=== PATIENT | male | born 1990 | race African-American/Black ===

== ENCOUNTER 2018-07-26 12:29 | Inpatient (IN) ==
--- NOTE | 2018-07-26 13:28 | ED ---
HPI General Chief complaint: Psychiatric Symptoms Stated complaint: Psych eval / VCSO / tx [facility] Time Seen by Provider: 07/26/18 13:25 History of Present Illness HPI narrative: 28-year-old male with history of cerebral palsy, wheelchair-bound , presents under a Keller act initiated by the psychiatric nurse at [facility]. According to his paperwork the patient was attempting to overdose 2 days ago and he is actively suicidal. He was transported here from [facility] because he is felt to be outside of their scope of care because he is wheelchair-bound. The patient reports that he has been feeling suicidal for several months. He reports that 2 days ago he ingested 8 tablets of tramadol and a self-harm attempt. Denies any coingestions. Today he went to [facility] in order to talk to somebody and he was placed under Keller act. He is currently complaining of hunger. Symptoms are moderate, no obvious aggravating relieving factors. He reports that he drinks alcohol on the weekends. He denies any illicit drug use. He has no other complaints at this time. Related Data Home Medications Medication Instructions Recorded Confirmed buspirone 10 mg PO DAILY 07/26/18 07/26/18 diclofenac sodium 50 mg PO TID 07/26/18 07/26/18 gabapentin 600 mg PO TID 07/26/18 07/26/18 omeprazole 40 mg PO DAILY 07/26/18 07/26/18 sertraline 50 mg PO DAILY 07/26/18 07/26/18 Allergies Allergy/AdvReac Type Severity Reaction Status Date / Time Penicillins Allergy Unknown unknown Verified 07/26/18 12:54 Review of Systems ROS: all other systems reviewed are negative [facility] Medical History Medical History Anxiety (Acute) Depression (Acute) History of asthma (Acute) Paralysis (Acute) Surgical History Surgical History History of back surgery (Acute) Social History Social History Substance History: Active Abuse Smoking Status: Current every day smoker Tobacco Type: Cigarettes How Often Do You Have a Drink Containing Alcohol: 4 or more times a week Recent Travel in [facility] within the Last 8 Weeks: No Recent Out of Country Travel within the Last 8 Weeks: No Substance Abuse Detail Marijuana: Substance Use Status: Active Route Used Substance Abuse: Inhalation Reason for Use: Calm Down Immunization History Tetanus Immunization: Unable to Assess Exam Narrative Exam Narrative: GENERAL: Well-developed well-nourished male in no acute distress SKIN: Warm and dry. HEAD: Atraumatic. Normocephalic. EYES: Pupils equal and round. No scleral icterus. No injection or drainage. ENT: No nasal bleeding or discharge. Mucous membranes pink and moist. NECK: Trachea midline. No JVD. CARDIOVASCULAR: Regular rate and rhythm. No murmur appreciated. RESPIRATORY: No accessory muscle use. Clear to auscultation. Breath sounds equal bilaterally. GASTROINTESTINAL: Abdomen soft, non-tender, nondistended. Hepatic and splenic margins not palpable. MUSCULOSKELETAL: No obvious deformities. NEUROLOGICAL: Awake and alert. No obvious cranial nerve deficits. Motor grossly within normal limits. Normal speech. PSYCHIATRIC: Depressed mood; insight and judgment normal. Course Initial Documented Vital Signs Temperature 98.0 F 07/26/18 12:40 Pulse Rate 87 07/26/18 12:40 Respiratory Rate 18 07/26/18 12:40 Blood Pressure 127/83 07/26/18 12:40 Pulse Oximetry 99 07/26/18 12:40 Last Documented Vital Signs Temperature 98.0 F 07/26/18 12:40 Pulse Rate 87 07/26/18 12:40 Respiratory Rate 18 07/26/18 12:40 Blood Pressure 127/83 07/26/18 12:40 Pulse Oximetry 99 07/26/18 12:40 Medical Decision Making MDM Narrative Medical decision making narrative: Mental health screening discussed with the patient. Psychiatric screen ordered. Lab work is unremarkable, the patient is medically cleared for psychiatric disposition Medical Screen Exam Complete: Yes Emergency Medical Condition: Yes Differential Diagnosis Differential Diagnosis: Major depressive disorder, adjustment reaction, acute psychosis, substance induced mood disorder, depressive disorder not otherwise specified Lab Data Result diagrams: 07/26/18 12:44 07/26/18 12:44 Lab Results 07/26/18 07/26/18 07/26/18 Range/Units 12:44 12:44 12:44 WBC 4.1 (4.0-11.0) th/mm3 RBC 4.91 (4.50-5.90) mil/mm3 Hgb 15.1 (13.0-17.0) gm/dL Hct 44.9 (39.0-51.0) % MCV 91.3 (80.0-100.0) fL MCH 30.6 (27.0-34.0) pg MCHC 33.5 (32.0-36.0) % RDW 14.1 (11.6-17.2) % Plt Count 333 (150-450) th/mm3 MPV 7.1 (7.0-11.0) fL Neut % (Auto) 67.2 (16.0-70.0) % Lymph % (Auto) 25.2 (9.0-44.0) % Moffat % (Auto) 6.8 (0.0-8.0) % Eos % (Auto) 0.3 (0.0-4.0) % Baso % (Auto) 0.5 (0.0-2.0) % Neut # (Auto) 2.8 (1.8-7.7) th/mm3 Lymph # (Auto) 1.0 (1.0-4.8) th/mm3 Moffat # (Auto) 0.3 (0.0-0.9) th/mm3 Eos # (Auto) 0.0 (0.0-0.4) th/mm3 Baso # (Auto) 0.0 (0.0-0.2) th/mm3 WBC Differential . Differential Comment Auto diff final Sodium 140 (136-145) meq/L Potassium 3.6 (3.5-5.1) meq/L Chloride 106 (98-107) meq/L Carbon Dioxide 27.2 (21.0-32.0) meq/L Anion Gap 7 (5-15) meq/L BUN 16 (7-18) mg/dL Creatinine 0.78 (0.60-1.30) mg/dL Estimated GFR Greater than 89 (>89) mL/min Random Glucose 85 (74-106) mg/dL Calcium 8.9 (8.5-10.1) mg/dL Magnesium 2.2 (1.5-2.5) mg/dL Total Bilirubin 0.3 (0.2-1.0) mg/dL AST 21 (15-37) U/L ALT 21 (12-78) U/L Alkaline Phosphatase 54 (45-117) U/L Total Protein 7.7 (6.4-8.2) g/dL Albumin 4.4 (3.4-5.0) g/dL TSH 0.690 (0.358-3.740) uIU/mL Salicylates Less than 1.7 L (2.8-20.0) mg/dL Acetaminophen Less than 2.0 L (10.0-30.0) mcg/mL Serum Alcohol Less than 3 (0-5) mg/dL Discharge Plan Discharge Disposition Patient Disposition: Sign Out(ED Internal Use Only) Discharge Condition Condition: Stable Discharge Details Diagnosis: Encounter for medical clearance for patient hold Physicians Team ED Provider: Jose Correa ED Midlevel Provider: Darrell Perez Rxs /Orders / Referrals /Forms Prescriptions: No Action gabapentin 600 mg Tablet 600 mg PO TID RF: 0 omeprazole 40 mg Capsule,Delayed Release(Dr/Ec) 40 mg PO DAILY RF: 0 buspirone 10 mg Tablet 10 mg PO DAILY RF: 0 diclofenac sodium 50 mg Tablet,Delayed Release (Dr/Ec) 50 mg PO TID RF: 0 sertraline 50 mg Tablet 50 mg PO DAILY RF: 0 Status ED Status: Medically Cleared
[2018-07-26 13:57] LABS: Baso % (Auto) 0.5 % (0.0-2.0); Eos % (Auto) 0.3 % (0.0-4.0); Hematocrit 44.9 % (39.0-51.0); Hemoglobin 15.1 gm/dL (13.0-17.0); Lymph % (Auto) 25.2 % (9.0-44.0); Mean Corpuscular HGB Conc 33.5 % (32.0-36.0); Mean Corpuscular Hemoglobin 30.6 pg (27.0-34.0); Mean Corpuscular Volume 91.3 fL (80.0-100.0); Mean Platelet Volume 7.1 fL (7.0-11.0); Mono # (Auto) 0.3 th/mm3 (0.0-0.9); Mono % (Auto) 6.8 % (0.0-8.0); Neut # (Auto) 2.8 th/mm3 (1.8-7.7); Neut % (Auto) 67.2 % (16.0-70.0); Platelet Count 333 th/mm3 (150-450); Red Blood Count 4.91 mil/mm3 (4.50-5.90); Red Cell Distribution Width 14.1 % (11.6-17.2); White Blood Count 4.1 th/mm3 (4.0-11.0)
[2018-07-26 14:11] LABS: Albumin 4.4 g/dL (3.4-5.0); Anion Gap 7 meq/L (5-15); Aspartate Aminotransferase 21 U/L (15-37); Blood Urea Nitrogen 16 mg/dL (7-18); Calcium 8.9 mg/dL (8.5-10.1); Carbon Dioxide 27.2 meq/L (21.0-32.0); Chloride 106 meq/L (98-107); Glomerular Filtration Rate Greater Than 89 mL/min (>89); Glucose,Random 85 mg/dL (74-106); Magnesium 2.2 mg/dL (1.5-2.5); Potassium 3.6 meq/L (3.5-5.1); Sodium 140 meq/L (136-145)
[2018-07-26 14:20] LABS: Alanine Aminotransferase 21 U/L (12-78); Alkaline Phosphatase 54 U/L (45-117); Total Protein 7.7 g/dL (6.4-8.2)
[2018-07-26 14:52] LABS: Amphetamine Screen,Urine Neg (Neg); Barbiturate Screen,Urine Neg (Neg); Cannabinoid Screen,Urine Neg (Neg); Cocaine Screen,Urine Neg (Neg)
[2018-07-26] MEDS ORDERED: Ibuprofen 600 MG Tablet PO PRN (15:11)
[2018-07-26] MEDS ORDERED: Aluminum/Magnesium/Simethacone Susp 30 ML UDC PO PRN (15:11)
[2018-07-26 15:24] LABS: Opiate Screen,Urine Neg (Neg)
--- NOTE | 2018-07-26 17:12 | ED ---
HPI - Psych - General Time Seen by Psych Provider: 14:51 Source: patient Mode of arrival: wheelchair Limitations: physical limitation - History of Present Illness MD complaint: suicidal ideation, feels depressed Onset (ago): day(s) Duration: constant, changing over time, getting worse History of same: Yes Context: significant life stressor Associated psychiatric symptoms: depression, suicidal ideation Associated symptoms: insomnia Treatments prior to arrival: placed on mental health hold If self harm: admits thoughts of self harm, has plan, has acted on plan, intentional overdose - General Chief Complaint: Psychiatric Symptoms Stated Complaint: Psych eval / VCSO / tx [facility] [place] Time Seen by Provider: 07/26/18 13:25 - History of Present Illness HPI Narrative: This is a 28-year-old single, male who is wheelchair bound due to cerebral palsy. He presents under a psychiatric [employer] initiated Keller act after an attempted suicide by overdose approximately 2 days ago. He is not previously known to this facility. Reviewed electronic medical record, labs, discussed case with staff. Patient was evaluated in [facility]. He was found clad in [facility] lying on the stretcher. He is alert and oriented x4. His speech is clear, organized, logical, abnormal charissa and volume. He endorses suicidal ideation by "any means I can". He denies homicidal or auditory or visual hallucinations. I can elicit no delusional material. There is no indication of psychosis nor of kael. He rates his mood as sad and his affect is somewhat depressed. Additionally, he reports some frustrations and recent familial deaths. When asked how the patient was feeling today he states, "well, suicidal". He states that he believes his family took him as a joke "so I did what I did". This is a [place] male who states that he moved to [place] from [facility] [place] approximately 5-6 years ago. He is been in a wheelchair since a young age. He resides with his sister and [id number] whom he states he does get along with as a role. He denies any previous inpatient admissions to psychiatry. He reports that when he was 16 years old he threatened suicide to his aunt but this was his first actual attempt. He does admit that the overdose was in fact an attempted end his life. He states that he has a diagnosis of depression and he is currently prescribed buspirone and Zoloft. He reports external stressors of a cousin's in 2017 and another family member's in 2018. Patient receives Social Security disability. He denies owning firearms. He denies any previous history of self-harm. He states that he smokes cigarettes "some days". States that he drinks alcohol socially and endorses marijuana use occasionally. He is reporting overall feeling hopeless and helpless. He reports occasional insomnia and lack of appetite on occasion as well. (Patti Taylor) - Related Data Home Medications Medication Instructions Recorded Confirmed buspirone 10 mg PO DAILY 07/26/18 07/26/18 diclofenac sodium 50 mg PO TID 07/26/18 07/26/18 gabapentin 600 mg PO TID 07/26/18 07/26/18 omeprazole 40 mg PO DAILY 07/26/18 07/26/18 sertraline 50 mg PO DAILY 07/26/18 07/26/18 Allergies Allergy/AdvReac Type Severity Reaction Status Date / Time Penicillins Allergy Unknown unknown Verified 07/26/18 12:54 Review of Systems All other systems reviewed negative except as stated in [facility] - History History Provided By: Patient - Medical History Medical History: Medical History (Last Reviewed 07/26/18 @ 17:18 by CESAR Underwood) Anxiety Depression History of asthma Paralysis - Surgical History Surgical History: Surgical History (Last Reviewed 07/26/18 @ 17:18 by CESAR Underwood) History of back surgery - Tobacco History Tobacco Use In Past 30 Days: Yes Smoking Status: Current every day smoker Tobacco Type: Cigarettes - Alcohol History How Often Do You Have a Drink Containing Alcohol: 4 or more times a week - Substance Use History Substance History: Active Abuse - Substance Use Type Marijuana Status: Active Route Used: Inhalation Reason for Use: Calm Down - Travel History Recent Travel in the [place] Within the Last 8 Weeks: No Recent Travel Out of the Country Within the Last 8 Weeks: No - Immunization History Tetanus Immunization: Unable to Assess Psychiatric History - Psychiatric History Psychiatric Treatment History: History of Psychiatric Treatment History of Inpatient Treatment: No Firearms in Home: No - Psychiatric History Patient is prescribed medications by his primary care provider. He denies previous inpatient admissions. (Patti Taylor) Physical Exam - General Limitations: physical limitation (Cerebral palsy) General appearance: alert, in no apparent distress - Head Head exam: atraumatic, normocephalic - Neurological Exam Neurological exam: Present: alert, oriented X3 - Psychiatric Psychiatric exam: Present: depressed - Skin Skin exam: Present: warm, dry Mental Status Examination Appearance: Appropriate, Well dressed/well groomed Consciousness: Alert Orientation: x4 Motor Activity: Other (Wheelchair-bound) Speech: Unremarkable Language: Adequate Fund of Knowledge: Adequate Attention and Concentration: Adequate Memory: Unremarkable Mood: Sad Affect: Sad Thought Process & Associations: Intact Thought Content: Appropriate Hallucination Type: None Delusion Type: None Suicidal Ideation: Yes Suicidal Plan: Yes Suicidal Intention: No Homicidal Ideation: No Homicidal Plan: No Homicidal Intention: No Insight: Fair Judgment: Impulsive Initial Documented Vital Signs Temperature 98.0 F 07/26/18 12:40 Pulse Rate 87 07/26/18 12:40 Respiratory Rate 18 07/26/18 12:40 Blood Pressure 127/83 07/26/18 12:40 Pulse Oximetry 99 07/26/18 12:40 Last Documented Vital Signs Temperature 98.0 F 07/26/18 12:40 Pulse Rate 87 07/26/18 12:40 Respiratory Rate 18 07/26/18 12:40 Blood Pressure 127/83 07/26/18 12:40 Pulse Oximetry 99 07/26/18 12:40 MDM - Psych - Diagnosis (1) Major depressive disorder Code(s): F32.9 - Major depressive disorder, single episode, unspecified Status : Acute (2) Suicidal ideation Code(s): R45.851 - Suicidal ideations Status: Acute (3) Suicide attempt Code(s): T14.91XA - Suicide attempt, initial encounter Status: Acute - Differential Diagnosis Likely: suicidal ideation - Lab Data Result diagrams: 07/26/18 12:44 07/26/18 12:44 - [facility] Narrative Medical decision making narrative: Given that the patient continues to endorse suicidal ideation and has a self- reported attempt by overdose 2 days ago he meets inpatient admission criteria. Therefore, I have admitted him to a locked inpatient psychiatric unit for further evaluation and treatment as deemed necessary. Patient does have capacity to sign for his medications and therefore I have obtained consent to continue his maintenance medications as well as 50 mg of hydroxyzine by mouth every 6 hours as needed for anxiety and 50 mg of diphenhydramine by mouth at bedtime as needed for insomnia. (Patti Taylor) - Lab Data Lab Results 07/26/18 07/26/18 07/26/18 Range/Units 12:44 12:44 12:44 WBC 4.1 (4.0-11.0) th/mm3 RBC 4.91 (4.50-5.90) mil/mm3 Hgb 15.1 (13.0-17.0) gm/dL Hct 44.9 (39.0-51.0) % MCV 91.3 (80.0-100.0) fL MCH 30.6 (27.0-34.0) pg MCHC 33.5 (32.0-36.0) % RDW 14.1 (11.6-17.2) % Plt Count 333 (150-450) th/mm3 MPV 7.1 (7.0-11.0) fL Neut % (Auto) 67.2 (16.0-70.0) % Lymph % (Auto) 25.2 (9.0-44.0) % Lanier % (Auto) 6.8 (0.0-8.0) % Eos % (Auto) 0.3 (0.0-4.0) % Baso % (Auto) 0.5 (0.0-2.0) % Neut # (Auto) 2.8 (1.8-7.7) th/mm3 Lymph # (Auto) 1.0 (1.0-4.8) th/mm3 Lanier # (Auto) 0.3 (0.0-0.9) th/mm3 Eos # (Auto) 0.0 (0.0-0.4) th/mm3 Baso # (Auto) 0.0 (0.0-0.2) th/mm3 WBC Differential . Differential Comment Auto diff final Sodium 140 (136-145) meq/L Potassium 3.6 (3.5-5.1) meq/L Chloride 106 (98-107) meq/L Carbon Dioxide 27.2 (21.0-32.0) meq/L Anion Gap 7 (5-15) meq/L BUN 16 (7-18) mg/dL Creatinine 0.78 (0.60-1.30) mg/dL Estimated GFR Greater than 89 (>89) mL/min Random Glucose 85 (74-106) mg/dL Calcium 8.9 (8.5-10.1) mg/dL Magnesium 2.2 (1.5-2.5) mg/dL Total Bilirubin 0.3 (0.2-1.0) mg/dL AST 21 (15-37) U/L ALT 21 (12-78) U/L Alkaline Phosphatase 54 (45-117) U/L Total Protein 7.7 (6.4-8.2) g/dL Albumin 4.4 (3.4-5.0) g/dL TSH 0.690 (0.358-3.740) uIU/mL Salicylates Less than 1.7 L (2.8-20.0) mg/dL Urine Opiates Screen (Neg) Acetaminophen Less than 2.0 L (10.0-30.0) mcg/mL Ur Barbiturates Screen (Neg) Ur Amphetamines Screen (Neg) U Benzodiazepines Scrn (Neg) Urine Cocaine Screen (Neg) U Cannabinoids Screen (Neg) Serum Alcohol Less than 3 (0-5) mg/dL 07/26/18 Range/Units 13:45 WBC (4.0-11.0) th/mm3 RBC (4.50-5.90) mil/mm3 Hgb (13.0-17.0) gm/dL Hct (39.0-51.0) % MCV (80.0-100.0) fL MCH (27.0-34.0) pg MCHC (32.0-36.0) % RDW (11.6-17.2) % Plt Count (150-450) th/mm3 MPV (7.0-11.0) fL Neut % (Auto) (16.0-70.0) % Lymph % (Auto) (9.0-44.0) % Lanier % (Auto) (0.0-8.0) % Eos % (Auto) (0.0-4.0) % Baso % (Auto) (0.0-2.0) % Neut # (Auto) (1.8-7.7) th/mm3 Lymph # (Auto) (1.0-4.8) th/mm3 Lanier # (Auto) (0.0-0.9) th/mm3 Eos # (Auto) (0.0-0.4) th/mm3 Baso # (Auto) (0.0-0.2) th/mm3 WBC Differential Differential Comment Sodium (136-145) meq/L Potassium (3.5-5.1) meq/L Chloride (98-107) meq/L Carbon Dioxide (21.0-32.0) meq/L Anion Gap (5-15) meq/L BUN (7-18) mg/dL Creatinine (0.60-1.30) mg/dL Estimated GFR (>89) mL/min Random Glucose (74-106) mg/dL Calcium (8.5-10.1) mg/dL Magnesium (1.5-2.5) mg/dL Total Bilirubin (0.2-1.0) mg/dL AST (15-37) U/L ALT (12-78) U/L Alkaline Phosphatase (45-117) U/L Total Protein (6.4-8.2) g/dL Albumin (3.4-5.0) g/dL TSH (0.358-3.740) uIU/mL Salicylates (2.8-20.0) mg/dL Urine Opiates Screen Neg (Neg) Acetaminophen (10.0-30.0) mcg/mL Ur Barbiturates Screen Neg (Neg) Ur Amphetamines Screen Neg (Neg) U Benzodiazepines Scrn Neg (Neg) Urine Cocaine Screen Neg (Neg) U Cannabinoids Screen Neg (Neg) Serum Alcohol (0-5) mg/dL
[2018-07-27] MEDS ORDERED: Acetaminophen 325 MG Tablet PO ONE (06:15)
[2018-07-27] MEDS ORDERED: Sertraline 50 MG Tablet PO SCH (09:00)
[2018-07-27] MEDS: Gabapentin 300 MG Capsule PO SCH ×3 (09:31→17:47)
[2018-07-27 10:33] LABS: Anion Gap 8 meq/L (5-15); Blood Urea Nitrogen 14 mg/dL (7-18); Calcium 9.2 mg/dL (8.5-10.1); Carbon Dioxide 30.4 meq/L (21.0-32.0); Chloride 103 meq/L (98-107); Glomerular Filtration Rate Greater Than 89 mL/min (>89); Glucose,Random 83 mg/dL (74-106); Potassium 3.8 meq/L (3.5-5.1); Sodium 141 meq/L (136-145)
[2018-07-27 10:34] LABS: Cholesterol 157 mg/dL (120-200); Triglycerides 83 mg/dL (42-150)
[2018-07-27 10:36] LABS: Chol/HDL Ratio 2.53 Ratio; LDL Cholesterol,Calculated 78 mg/dL (0-99)
--- NOTE | 2018-07-27 12:47 | P.HPPSY ---
Provisional Diagnosis Admission Date: July 26, 2018 15:10 Corbin I.: Major depressive disorder recurrent moderate Generalized anxiety disorder Corbin III.: Cerebral palsy Competence Certification of Person's Competence To Provide Express and Informed Consent I have personally examined Venkata Saini, a person being served at [facility] on, July 27, 2018 1234. Express and informed consent means consent voluntarily given in writing, by a competent person, after sufficient explanation and disclosure of the subject matter involved to enable the person to make a knowing and willful decision without any element of force, fraud, deceit, duress, or other form of constraint or coercion. This person is 18 years of age or older, is not now known to be incompetent to consent to treatment with a guardian advocate, and does not have a health care surrogate or proxy currently making medical treatment decisions. I have found this person to be one of the following: [xxx] Competent to provide express and informed consent, as defined above, for voluntary admission to this facility and is competent to provide express and informed consent for treatment. He/she has the consistent capacity to make well reasoned, willful, and knowing decisions concerning his or her medical or mental health treatment. The person fully and consistently understands the purpose of the admission for examination/placement and is fully capable of personally exercising all rights assured under [place] Incompetent to provide express and informed consent to voluntary admission, and this is incompetent to provide express and informed consent to treatment. The person must be transferred to involuntary status and a petition for a guardian advocate filed with the Circuit Court. [] Refusing to provide express and informed consent to voluntary admission but is competent to provide express and informed consent for treatment. The person must be discharged or transferred to involuntary status. Form shall be completed within 24 hours of a person's arrival at the receiving facility and filed in the clinical record of each person: 1. Admitted on a voluntary basis 2. Permitted to provide express and informed consent to his/her own treatment 3. Allowed to transfer from involuntary to voluntary status 4. Prior to permitting a person to consent to his or her own treatment after having been previously found incompetent to consent to treatment. History of Present Illness Capacity: Has capacity Chief Complaint: Suicidal ideations and behaviors History of Present Illness: The patient is a 28-year-old male with a history of cerebral palsy who presented to the emergency department under a Keller act order initiated by a psychiatric nurse at [facility]. The patient reportedly had admitted to a suicide attempt by overdose 2 days prior to admission. He had admitted to suicidal ideations for several months and taken an overdose of 8 tramadol tablets, but then told his family and agreed to seek help through [facility]. The patient reports recent and chronic stressors from grief and loss starting with his mother when he was 7 years old followed by multiple family members and close friends to include a close cousin in 2017 and a close friend just recently. Patient reports that the last time he was happy was before his mother's at the age of 7. He reports trying to be happy throughout his life, "I try to laugh and joke with my family" but he indicates that the recurrent losses continue to bring him down. Patient also expressed stress from being financially limited, "I would like to help my family more but I do not get enough money and I cannot work." As for depression, patient endorses recurrent episodes of depression with symptoms of restless sleep, decreased interest, increased feelings of guilt and helplessness, decreased energy, decreased concentration, decreased appetite, and thoughts that he would be better off . The patient also described interpersonal sensitivity while depressed characterized as "I feel like people are taking advantage of me." Patient also reports decreased frustration tolerance and difficulty controlling his temper. Patient reports that his family has been supportive and he lives for the opportunity to be around his sister brother and nephews and nieces. As for anxiety, the patient reports chronic excessive worries that are worse when "things are going good". He reports an irritable mood and intermittent muscle tension. He reports chronic problems falling asleep due to racing worries. As for psychosis, he denies any complete auditory hallucinations or visual hallucinations and he denies paranoid delusions but he does endorse negative self commentary that can be strong when feeling depressed and interpersonal anxiety and sensitivity. Past psychiatric history: Past Diagnoses: Patient reports being diagnosed with depression and anxiety by psychiatrist in 2017 Hospitalizations: None prior Suicidal behavior: Patient reports preparing for suicides a total of 3 times but this was his first actual attempt. He denies any history of interpersonal violence. Past psychotropic medication trials: Patient reports that his primary care doctor has been prescribing him Zoloft 50 mg a day and buspirone 10 mg a day for anxiety and depression but he quit because he felt like it was sedating. Outpatient MH treatment: Patient sought treatment in 2017 and had 3 visits with a psychiatrist but was ambivalent about starting medication so the treatment was discontinued. Patient eventually decided "I could not do it on my own and I need help with the depression." He sought psychiatric treatment through his primary care provider provided the BuSpar and Zoloft. Substance Use Treatment: None Abuse/assault history: Denies Family psychiatric history: Denies Psychosocial history: Patient was born and raised in [facility]. His mother when he was 7 years old. He eventually moved down to [place] at the age of 13 and graduated high school. No college. He currently lives with his sister and [id number]. He is on disability and receives Social Security income. He denies any history of arrests or legal stressors. Substance Use history: Tobacco use: He denies regular use but does admit to smoking when feeling depressed but has not used for over 2 weeks. Alcohol use: He denies a history of regular use. He does admit to drinking 2-4 times per week with friends, "I cannot afford to buy alcohol for myself." Cannabis use: He reports occasional use and again is reliant on others providing for him Stimulant use: Denies Opiate use: Denies Prescription drug abuse: Denies - Inpatient Certification I certify that the inpatient services were ordered in accordance with Medicare regulations governing the order. This includes certification that hospital inpatient services are reasonable and necessary and in the case of services not specified as inpatient-only under 42 CFR 419.22(n), that they are appropriately provided as inpatient services in accordance to with the 2-midnight benchmark under 43 CFR 412.3(e) I certify that inpatient psychiatric hospital services are medically necessary. Evaluation and treatment and/or diagnostic testing are expected to improve the patient's condition. The patient needs on a daily basis, active treatment furnished directly by or requiring the supervision of inpatient psychiatric facility personnel. Estimated Total Length of Stay (Days): 5 Plans for Post Hospital Care: Home Review of Systems Musculoskeletal: Reports abnormal walking (Uses wheelchair), Reports limited joint movement, Reports stiffness Psychiatric: Reports abnormal sleep pattern, Reports anxiety, Reports depression , Reports difficulty concentrating, Reports hopelessness, Reports irritability, Reports lack of enjoyment, Denies seeing things others do not see, Denies sensing things others do not sense, Denies thoughts of hurting/killing others, Denies thoughts of hurting/killing yourself (None currently but he has had thoughts intermittently while depressed) PMF - History History Provided By: Patient - Medical History Medical History: Medical History (Last Reviewed 07/26/18 @ 17:18 by CESAR Underwood) Anxiety Depression History of asthma Paralysis - Surgical History Surgical History: Surgical History (Last Reviewed 07/26/18 @ 17:18 by CESAR Underwood) History of back surgery - Tobacco History Second Hand Smoke Exposure: Yes Tobacco Use In Past 30 Days: Yes Smoking Status: Current some day smoker Tobacco Type: Cigarettes - Alcohol History How Often Do You Have a Drink Containing Alcohol: 2 to 3 times a week - Substance Use History Substance History: Active Abuse - Substance Use Type Marijuana Status: Active Route Used: Inhalation Reason for Use: Calm Down, Get High Comment: PT reports preferring marijuana to psychotropic medications - Travel History Recent Travel in the [place] Within the Last 8 Weeks: No Recent Travel Out of the Country Within the Last 8 Weeks: No - Immunization History Tetanus Immunization: Unable to Assess Medications and Allergies Active Medications: Active Medications Al Hydrox/Mg Hydrox/Simethicone (Mag-Al Plus Susp Liq) 30 ml PO Q6H PRN PRN Reason: DYSPEPSIA Al Hydroxide/Mg Hydroxide (Milk Of Magnesia Liq) 30 ml PO Q12H PRN PRN Reason: Mild Constipation Buspirone HCl (Buspar) 10 mg PO DAILY [facility] Last Admin: 07/27/18 09:17 Dose: 10 mg Diclofenac Sodium (Voltaren Dr) 50 mg PO TID [facility] Last Admin: 07/27/18 12:22 Dose: 50 mg Diphenhydramine HCl (Benadryl) 50 mg PO HS PRN PRN Reason: INSOMNIA Last Admin: 07/26/18 22:16 Dose: 50 mg Gabapentin (Neurontin) 600 mg PO TID [facility] Last Admin: 07/27/18 12:21 Dose: 600 mg Hydroxyzine HCl (Atarax) 50 mg PO Q6H PRN PRN Reason: ANXIETY Last Admin: 07/26/18 18:38 Dose: 50 mg Pantoprazole Sodium (Protonix) 40 mg PO DAILY [facility] Last Admin: 07/27/18 09:32 Dose: 40 mg Sertraline HCl (Zoloft) 50 mg PO DAILY [facility] Last Admin: 07/27/18 09:17 Dose: 50 mg Allergies Allergy/AdvReac Type Severity Reaction Status Date / Time Penicillins Allergy Unknown unknown Verified 07/26/18 12:54 Home Medications Medication Instructions Recorded Confirmed Type buspirone 10 mg PO DAILY 07/26/18 07/26/18 History diclofenac sodium 50 mg PO TID 07/26/18 07/26/18 History gabapentin 600 mg PO TID 07/26/18 07/26/18 History omeprazole 40 mg PO DAILY 07/26/18 07/26/18 History sertraline 50 mg PO DAILY 07/26/18 07/26/18 History Results - Labs CBC & Chem 7: 07/26/18 12:44 07/27/18 09:32 Labs: Laboratory Results - last 24 hr 07/26/18 07/26/18 07/26/18 12:44 12:44 12:44 WBC 4.1 RBC 4.91 Hgb 15.1 Hct 44.9 MCV 91.3 MCH 30.6 MCHC 33.5 RDW 14.1 Plt Count 333 MPV 7.1 Neut % (Auto) 67.2 Lymph % (Auto) 25.2 Woods % (Auto) 6.8 Eos % (Auto) 0.3 Baso % (Auto) 0.5 Neut # (Auto) 2.8 Lymph # (Auto) 1.0 Woods # (Auto) 0.3 Eos # (Auto) 0.0 Baso # (Auto) 0.0 WBC Differential . Differential Comment Auto diff final Sodium 140 Potassium 3.6 Chloride 106 Carbon Dioxide 27.2 Anion Gap 7 BUN 16 Creatinine 0.78 Estimated GFR Greater than 89 Random Glucose 85 Calcium 8.9 Magnesium 2.2 Total Bilirubin 0.3 AST 21 ALT 21 Alkaline Phosphatase 54 Total Protein 7.7 Albumin 4.4 Triglycerides Cholesterol LDL Cholesterol, Calc HDL Cholesterol Cholesterol/HDL Ratio TSH 0.690 Salicylates Less than 1.7 L Urine Opiates Screen Acetaminophen Less than 2.0 L Ur Barbiturates Screen Ur Amphetamines Screen U Benzodiazepines Scrn Urine Cocaine Screen U Cannabinoids Screen Serum Alcohol Less than 3 07/26/18 07/27/18 13:45 09:32 WBC RBC Hgb Hct MCV MCH MCHC RDW Plt Count MPV Neut % (Auto) Lymph % (Auto) Woods % (Auto) Eos % (Auto) Baso % (Auto) Neut # (Auto) Lymph # (Auto) Woods # (Auto) Eos # (Auto) Baso # (Auto) WBC Differential Differential Comment Sodium 141 Potassium 3.8 Chloride 103 Carbon Dioxide 30.4 Anion Gap 8 BUN 14 Creatinine 1.04 Estimated GFR Greater than 89 Random Glucose 83 Calcium 9.2 Magnesium Total Bilirubin AST ALT Alkaline Phosphatase Total Protein Albumin Triglycerides 83 Cholesterol 157 LDL Cholesterol, Calc 78 HDL Cholesterol 62.0 H Cholesterol/HDL Ratio 2.53 TSH Salicylates Urine Opiates Screen Neg Acetaminophen Ur Barbiturates Screen Neg Ur Amphetamines Screen Neg U Benzodiazepines Scrn Neg Urine Cocaine Screen Neg U Cannabinoids Screen Neg Serum Alcohol Exam Vital signs: Vital Signs 07/26/18 12:40 07/26/18 17:27 07/27/18 05:54 Temperature 98.0 F 97.5 F L 98.6 F Pulse Rate 87 78 70 Respiratory Rate 18 16 18 Blood Pressure 127/83 118/60 102/49 L Pulse Oximetry 99 98 Intake & Output 07/26/18 07/27/18 07/27/18 18:59 06:59 18:59 Intake Total 360 / 360 Balance 360 / 360 Weight 54.5 kg Intake: Oral 360 / 360 Other: Weight On Admission 54.5 kg Mental Status Examination Appearance: Appropriate Consciousness: Alert Orientation: x4 Motor Activity: Other (Wheelchair-bound) Speech: Unremarkable Language: Adequate Fund of Knowledge: Adequate Attention and Concentration: Adequate Memory: Unremarkable Mood: Sad, Anxious Affect: Sad Thought Process & Associations: Intact Thought Content: Appropriate Hallucination Type: None Delusion Type: None Suicidal Ideation: No Suicidal Plan: No Suicidal Intention: No Homicidal Ideation: No Homicidal Plan: No Homicidal Intention: No Insight: Fair Judgment: Impulsive Assessment and Plan - Assessment (1) Major depressive disorder, recurrent, moderate Code(s): F33.1 - Major depressive disorder, recurrent, moderate Status: Acute (2) Generalized anxiety disorder Code(s): F41.1 - Generalized anxiety disorder Status: Acute - Plan Plan: 1. Continue with admission to inpatient psychiatry at [facility]; convert to voluntary/competent legal status. 2. Routine unit precautions. 3. Comfort medications ordered for as needed treatment of constipation, heartburn, diarrhea, and mild pain. 4. Hydroxyzine 50mg po q6H prn anxiety/insomnia. 5. Recommend an increase to his Zoloft treatment due to sedation from the 50 mg but otherwise well tolerated; start tomorrow morning at Zoloft 100 mg once a day for treatment of depression and anxiety. 6. Continue buspirone but increase to 10 mg 3 times a day for treatment of anxiety and depression. 7. Continue gabapentin as ordered. 8. Patient will participate in the unit programming to include group therapies , milieu therapy and recreational therapies. 9. Discharge planning: The patient will need referrals for psychiatric care as well as counseling. The patient is motivated to attend support group here at [facility] and will be provided information at discharge. The patient is expected to return home to his sister and [id number]. Estimated LOS: 3-5 days Justification for Continued Inpatient Stay: Patient is a 28-year-old male with a history of chronic and recurrent depressive episodes as well as chronic anxiety seem to have begun with the tragic loss of his mother at the age of 7. The patient has recently had an exacerbation of his depression in relation to grief and loss. He admits to recurrent thoughts of suicide to include preparation and plans and this past week he actually follow through with an overdose of his pain medication. The patient remains depressed hopeless and helpless. He is expressing sincere motivation to get help and to live for his family and a chance to be happy again and he is willing to cooperate with medication changes and referrals for outpatient care therefore he will be allowed to sign in voluntarily with the plan to make changes to his medications ensure there tolerability and continued improvement in mood and then discharge early next week.
[2018-07-27 17:18] LABS: Hemoglobin A1c 5.4 % (4.3-6.0)
[2018-07-28] MEDS: Gabapentin 300 MG Capsule PO SCH ×3 (09:28→18:14)
[2018-07-28] MEDS: Sertraline 50 MG Tablet PO SCH (09:28)
--- NOTE | 2018-07-28 12:52 | P.PNPSY ---
Subjective Chief Complaint: Suicidal ideations and behaviors Remarks: Patient was seen and case discussed with nursing. Patient describes his mood today "little bit better, depressed." Is blunted and minimally interactive during the interview. Seclusive to her room. At this time, he denies suicidal or homicidal ideation intent or plan. Review of Systems All other systems reviewed negative except as stated in HPI Mental Status Examination Appearance: Appropriate Consciousness: Alert Orientation: x4 Motor Activity: Other (Wheelchair-bound) Speech: Unremarkable Language: Adequate Fund of Knowledge: Adequate Attention and Concentration: Adequate Memory: Unremarkable Mood: Sad, Anxious Affect: Sad Thought Process & Associations: Intact Thought Content: Appropriate Hallucination Type: None Delusion Type: None Suicidal Ideation: No Suicidal Plan: No Suicidal Intention: No Homicidal Ideation: No Homicidal Plan: No Homicidal Intention: No Insight: Fair Judgment: Impulsive Assessment and Plan - Assessment (1) Major depressive disorder, recurrent, moderate Code(s): F33.1 - Major depressive disorder, recurrent, moderate Status: Acute (2) Generalized anxiety disorder Code(s): F41.1 - Generalized anxiety disorder Status: Acute - Plan Plan: Continue current treatment plan Justification for Continued Inpatient Stay: Patient would decompensate in a less restrictive setting
[2018-07-29] MEDS: Gabapentin 300 MG Capsule PO SCH ×3 (08:38→17:49)
[2018-07-29] MEDS: Sertraline 50 MG Tablet PO SCH (08:39)
--- NOTE | 2018-07-29 16:00 | P.PNPSY ---
Subjective Chief Complaint: Suicidal ideations and behaviors Remarks: Reviewed electronic medical record and discussed with nursing staff. Rounded with HIRAM Martinez. Patient is in bed napping. Nursing reports that patient has been participating in activities and active on the unit. He told the nursing staff that he is starting to feel better. Appetite is good and sleeping well. Denies SI/HI. Review of Systems All other systems reviewed negative except as stated in HPI Mental Status Examination Appearance: Appropriate Consciousness: Alert Orientation: x4 Motor Activity: Other (Wheelchair-bound) Speech: Unremarkable Language: Adequate Fund of Knowledge: Adequate Attention and Concentration: Adequate Memory: Unremarkable Mood: Sad, Anxious Affect: Sad Thought Process & Associations: Intact Thought Content: Appropriate Hallucination Type: None Delusion Type: None Suicidal Ideation: No Suicidal Plan: No Suicidal Intention: No Homicidal Ideation: No Homicidal Plan: No Homicidal Intention: No Insight: Fair Judgment: Impulsive Assessment and Plan - Assessment (1) Generalized anxiety disorder Code(s): F41.1 - Generalized anxiety disorder Status: Acute (2) Major depressive disorder, recurrent, moderate Code(s): F33.1 - Major depressive disorder, recurrent, moderate Status: Acute - Plan Plan: Continue current treatment plan Justification for Continued Inpatient Stay: Moving patient to a less restrictive environment may result in his decompensation.
[2018-07-30] MEDS: Gabapentin 300 MG Capsule PO SCH ×3 (08:56→18:08)
[2018-07-30] MEDS: Sertraline 50 MG Tablet PO SCH (08:58)
--- NOTE | 2018-07-30 12:19 | P.PNPSY ---
Subjective Chief Complaint: Suicidal ideations and behaviors Remarks: Patient seen for follow-up, chart reviewed, patient discussed with nursing staff ; we reviewed the patient's mood, thoughts, and behaviors from overnight and this morning. Nursing reports the patient has remained calm and cooperative with care but is mostly seclusive to his room. He has attended groups with encouragement. He is taking his medications and has not complained of any physical discomfort. He has not voiced any homicidal or suicidal ideations. Patient was seen at bedside finishing his lunch. He reports that "my depression is still there but it is better." The patient denies significant improvement with his anxiety and he expressed concern with potential discharge, "I am afraid to go home yet because of the way I feel I I might hurt myself or my family and I do not want to do that." Patient expressed motivation to continue going to psychotherapy groups and would like to be referred for intensive outpatient therapy and anger management if available. The patient agrees to contract for safety and that he will notify nursing or hospital staff if suicidal ideations return or he feels he is about to lose control his behavior. Mental Status Examination Appearance: Appropriate Consciousness: Alert Orientation: x4 Motor Activity: Other (Wheelchair-bound) Speech: Unremarkable Language: Adequate Fund of Knowledge: Adequate Attention and Concentration: Adequate Memory: Unremarkable Mood: Sad, Anxious Affect: Sad, Other (Constricted) Thought Process & Associations: Intact Thought Content: Appropriate Hallucination Type: None Delusion Type: None Suicidal Ideation: No Suicidal Plan: No Suicidal Intention: No Homicidal Ideation: No Homicidal Plan: No Homicidal Intention: No Insight: Fair Judgment: Impulsive Assessment and Plan - Assessment (1) Major depressive disorder, recurrent, moderate Code(s): F33.1 - Major depressive disorder, recurrent, moderate Status: Acute (2) Generalized anxiety disorder Code(s): F41.1 - Generalized anxiety disorder Status: Acute - Plan Plan: Initial assessment and plan: Patient is a 28-year-old male with a history of chronic and recurrent depressive episodes as well as chronic anxiety seem to have begun with the tragic loss of his mother at the age of 7. The patient has recently had an exacerbation of his depression in relation to grief and loss. He admits to recurrent thoughts of suicide to include preparation and plans and this past week he actually follow through with an overdose of his pain medication. The patient remains depressed hopeless and helpless. He is expressing sincere motivation to get help and to live for his family and a chance to be happy again and he is willing to cooperate with medication changes and referrals for outpatient care therefore he will be allowed to sign in voluntarily with the plan to make changes to his medications ensure there tolerability and continued improvement in mood and then discharge early next week. 1. Continue with admission to inpatient psychiatry at [facility]; convert to voluntary/competent legal status. 2. Routine unit precautions. 3. Comfort medications ordered for as needed treatment of constipation, heartburn, diarrhea, and mild pain. 4. Hydroxyzine 50mg po q6H prn anxiety/insomnia. 5. Recommend an increase to his Zoloft treatment due to sedation from the 50 mg but otherwise well tolerated; start tomorrow morning at Zoloft 100 mg once a day for treatment of depression and anxiety. 6. Continue buspirone but increase to 10 mg 3 times a day for treatment of anxiety and depression. 7. Continue gabapentin as ordered. 8. Patient will participate in the unit programming to include group therapies , milieu therapy and recreational therapies. 9. Discharge planning: The patient will need referrals for psychiatric care as well as counseling. The patient is motivated to attend support group here at [place] and will be provided information at discharge. The patient is expected to return home to his sister and [id number]. Estimated LOS: 3-5 days 07/30/2018: Fair response to treatment; the patient is reporting improved mood and sleeping well through the night and tolerating medications. He continues to express concern for his emotional sensitivity and ability to control self- harm behaviors and therefore will require continued inpatient stabilization. Continue inpatient psychiatric treatment and observation; medications unchanged. Continue involvement in the inpatient programming to include support groups and recreational therapy. Discharge planning: The patient will need referrals for psychiatric care as well as counseling. The patient is motivated to attend support group here at [place] and will be provided information at discharge. The patient is expected to return home to his sister and [id number]. Anticipate discharge by Monday. Justification for Continued Inpatient Stay: Patient remains an elevated risk for self-harm or harm to others and will require further inpatient stabilization and preparation of a safe discharge plan. Moving patient to a less restrictive environment at this time may result in decompensation.
[2018-07-31] MEDS: Sertraline 50 MG Tablet PO SCH (08:25)
[2018-07-31] MEDS: Gabapentin 300 MG Capsule PO SCH ×3 (08:25→17:11)
--- NOTE | 2018-07-31 12:05 | P.PNPSY ---
Subjective Chief Complaint: Suicidal ideations and behaviors Remarks: Patient seen for follow-up, chart reviewed, patient discussed with nursing staff ; we reviewed the patient's mood, thoughts, and behaviors from overnight and this morning. Nurse reports that patient admitted to passive suicidal thoughts on evening shift but this morning his affect has appeared brighter and he has been going to all of the groups. The patient was seen during fresh air break and he continues to report overall improvement on his mood but anxiety remains high. The patient expressed understanding that he be discharged this week and he indicates that he is trying to get the most out of his group therapies today. Patient is able to contract for safety and feels confident that he will be ready for discharge tomorrow. Mental Status Examination Appearance: Appropriate Consciousness: Alert Orientation: x4 Motor Activity: Other (Wheelchair-bound) Speech: Unremarkable Language: Adequate Fund of Knowledge: Adequate Attention and Concentration: Adequate Memory: Unremarkable Mood: Sad, Anxious Affect: Sad, Other (Constricted) Thought Process & Associations: Intact Thought Content: Appropriate Hallucination Type: None Delusion Type: None Suicidal Ideation: No Suicidal Plan: No Suicidal Intention: No Homicidal Ideation: No Homicidal Plan: No Homicidal Intention: No Insight: Fair Judgment: Impulsive Assessment and Plan - Assessment (1) Major depressive disorder, recurrent, moderate Code(s): F33.1 - Major depressive disorder, recurrent, moderate Status: Acute (2) Generalized anxiety disorder Code(s): F41.1 - Generalized anxiety disorder Status: Acute - Plan Plan: Initial assessment and plan: Patient is a 28-year-old male with a history of chronic and recurrent depressive episodes as well as chronic anxiety seem to have begun with the tragic loss of his mother at the age of 7. The patient has recently had an exacerbation of his depression in relation to grief and loss. He admits to recurrent thoughts of suicide to include preparation and plans and this past week he actually follow through with an overdose of his pain medication. The patient remains depressed hopeless and helpless. He is expressing sincere motivation to get help and to live for his family and a chance to be happy again and he is willing to cooperate with medication changes and referrals for outpatient care therefore he will be allowed to sign in voluntarily with the plan to make changes to his medications ensure there tolerability and continued improvement in mood and then discharge early next week. 1. Continue with admission to inpatient psychiatry at [facility]; convert to voluntary/competent legal status. 2. Routine unit precautions. 3. Comfort medications ordered for as needed treatment of constipation, heartburn, diarrhea, and mild pain. 4. Hydroxyzine 50mg po q6H prn anxiety/insomnia. 5. Recommend an increase to his Zoloft treatment due to sedation from the 50 mg but otherwise well tolerated; start tomorrow morning at Zoloft 100 mg once a day for treatment of depression and anxiety. 6. Continue buspirone but increase to 10 mg 3 times a day for treatment of anxiety and depression. 7. Continue gabapentin as ordered. 8. Patient will participate in the unit programming to include group therapies , milieu therapy and recreational therapies. 9. Discharge planning: The patient will need referrals for psychiatric care as well as counseling. The patient is motivated to attend support group here at [place] and will be provided information at discharge. The patient is expected to return home to his sister and [id number]. Estimated LOS: 3-5 days 07/30/2018: Fair response to treatment; the patient is reporting improved mood and sleeping well through the night and tolerating medications. He continues to express concern for his emotional sensitivity and ability to control self- harm behaviors and therefore will require continued inpatient stabilization. Continue inpatient psychiatric treatment and observation; medications unchanged. Continue involvement in the inpatient programming to include support groups and recreational therapy. Discharge planning: The patient will need referrals for psychiatric care as well as counseling. The patient is motivated to attend support group here at [place] and will be provided information at discharge. The patient is expected to return home to his sister and [id number]. Anticipate discharge by Monday. 07/31/2018: Fair response to treatment; the patient's depression is slowly lifting and his anxiety seems better today as he is attending more of the groups that he had previously. He is tolerating the medications and expressed good understanding of safety planning and discharge planning. Continue inpatient psychiatric treatment and observation; medications unchanged as it will take more time to reach therapeutic effect from the Zoloft. Discharge planning: The patient will need referrals for psychiatric care as well as counseling. The patient is motivated to attend support group here at [place] and will be provided information at discharge. The patient is expected to return home to his sister and [id number]. Anticipate discharge by Monday. Justification for Continued Inpatient Stay: Patient remains an elevated risk for self-harm and will require further inpatient stabilization and preparation of a safe discharge plan. Moving patient to a less restrictive environment at this time may result in decompensation.
--- NOTE | 2018-07-31 15:58 | P.TTN ---
- Patient Problems Problems: 1. Discharge planning 2. Medication compliance 3. Knowledge deficit 4. Lack of coping skills - Progress Toward Goals Provider Present: Other Provider Input: 07/31/2018; per Dr. Llanos, patient continues to express being depressed with random SI. Nurse(s) Present: RN Nurse Input: 07/31/2018; patient is eating meals and taking medication, continues to express feeling sad and depressed Psychiatric Counselors Present: Sonia Pinon [facility] Psychiatric Therapist Input: 07/31/2018; counselor will contact patient family to discuss dc planning, link patient with an outpatient provider Group Spec/RT/OT/[facility] Present: Javier Atkinson, OT Group Spec/RT/OT/[facility] Input: 07/31/2018 patient is participating with activities and groups - Documentation Teaching Recipient: Patient
[2018-08-01] MEDS: Sertraline 50 MG Tablet PO SCH (08:19)
[2018-08-01] MEDS: Gabapentin 300 MG Capsule PO SCH ×3 (08:19→17:55)
--- NOTE | 2018-08-01 17:09 | P.PNPSY ---
Subjective Chief Complaint: Suicidal ideations and behaviors Remarks: Patient seen for follow-up, chart reviewed, patient discussed with nursing staff ; we reviewed the patient's mood, thoughts, and behaviors from overnight and this morning. Nurse reports the patient continues to have restless sleep and only got about 6 hours of rest last night. The patient was seen participating in group therapy throughout the day. We discussed plans for discharge and he expressed concern because of a recurrence of passive suicidal thoughts today that seem to be triggered by discussions of grief during his support group. He complained of acute sadness while processing the loss of his parents. The patient reports that overall the inpatient programming has been very helpful and he feels another day would ensure that he will be able to return home without a recurrence of his suicidality. Mental Status Examination Appearance: Appropriate Consciousness: Alert Orientation: x4 Motor Activity: Other (Wheelchair-bound) Speech: Unremarkable Language: Adequate Fund of Knowledge: Adequate Attention and Concentration: Adequate Memory: Unremarkable Mood: Sad, Anxious Affect: Sad, Other (Constricted) Thought Process & Associations: Intact Thought Content: Appropriate Hallucination Type: None Delusion Type: None Suicidal Ideation: Yes (He reports brief thoughts that he would rather be so he could join his parents but these thoughts did not include intent or plan) Suicidal Plan: No Suicidal Intention: No Homicidal Ideation: No Homicidal Plan: No Homicidal Intention: No Insight: Fair Judgment: Impulsive Assessment and Plan - Assessment (1) Major depressive disorder, recurrent, moderate Code(s): F33.1 - Major depressive disorder, recurrent, moderate Status: Acute (2) Generalized anxiety disorder Code(s): F41.1 - Generalized anxiety disorder Status: Acute - Plan Plan: Initial assessment and plan: Patient is a 28-year-old male with a history of chronic and recurrent depressive episodes as well as chronic anxiety seem to have begun with the tragic loss of his mother at the age of 7. The patient has recently had an exacerbation of his depression in relation to grief and loss. He admits to recurrent thoughts of suicide to include preparation and plans and this past week he actually follow through with an overdose of his pain medication. The patient remains depressed hopeless and helpless. He is expressing sincere motivation to get help and to live for his family and a chance to be happy again and he is willing to cooperate with medication changes and referrals for outpatient care therefore he will be allowed to sign in voluntarily with the plan to make changes to his medications ensure there tolerability and continued improvement in mood and then discharge early next week. 1. Continue with admission to inpatient psychiatry at [facility]; convert to voluntary/competent legal status. 2. Routine unit precautions. 3. Comfort medications ordered for as needed treatment of constipation, heartburn, diarrhea, and mild pain. 4. Hydroxyzine 50mg po q6H prn anxiety/insomnia. 5. Recommend an increase to his Zoloft treatment due to sedation from the 50 mg but otherwise well tolerated; start tomorrow morning at Zoloft 100 mg once a day for treatment of depression and anxiety. 6. Continue buspirone but increase to 10 mg 3 times a day for treatment of anxiety and depression. 7. Continue gabapentin as ordered. 8. Patient will participate in the unit programming to include group therapies , milieu therapy and recreational therapies. 9. Discharge planning: The patient will need referrals for psychiatric care as well as counseling. The patient is motivated to attend support group here at [place] and will be provided information at discharge. The patient is expected to return home to his sister and [id number]. Estimated LOS: 3-5 days 07/30/2018: Fair response to treatment; the patient is reporting improved mood and sleeping well through the night and tolerating medications. He continues to express concern for his emotional sensitivity and ability to control self- harm behaviors and therefore will require continued inpatient stabilization. Continue inpatient psychiatric treatment and observation; medications unchanged. Continue involvement in the inpatient programming to include support groups and recreational therapy. Discharge planning: The patient will need referrals for psychiatric care as well as counseling. The patient is motivated to attend support group here at [place] and will be provided information at discharge. The patient is expected to return home to his sister and [id number]. Anticipate discharge by Monday. 07/31/2018: Fair response to treatment; the patient's depression is slowly lifting and his anxiety seems better today as he is attending more of the groups that he had previously. He is tolerating the medications and expressed good understanding of safety planning and discharge planning. Continue inpatient psychiatric treatment and observation; medications unchanged as it will take more time to reach therapeutic effect from the Zoloft. Discharge planning: The patient will need referrals for psychiatric care as well as counseling. The patient is motivated to attend support group here at [place] and will be provided information at discharge. The patient is expected to return home to his sister and [id number]. Anticipate discharge by Monday. 08/01/2018: Fair response to treatment; the patient has definitely been motivated to engage in the inpatient programming and has developed good rapport with staff and patients. He is reporting only minimal improvement in mood and continued recurrence of passive suicidal ideations and will require more time on current medication regimen in order to reach a therapeutic trial. Continue inpatient psychiatric treatment and observation; medications unchanged as it will take more time to reach therapeutic effect from the Zoloft. The dose will not be increased at this time as the patient is complaining of loose stools since started the Zoloft. Start melatonin 5 mg at bedtime for insomnia. Discharge planning: The patient will need referrals for psychiatric care as well as counseling. The patient is motivated to attend support group here at [place] and will be provided information at discharge. The patient is expected to return home to his sister and [id number]. Anticipate discharge tomorrow. Justification for Continued Inpatient Stay: Patient remains an elevated risk for self-harm as evidenced by his recent suicide attempt and will require further inpatient stabilization and preparation of a safe discharge plan. Moving patient to a less restrictive environment at this time may result in decompensation.
[2018-08-01] MEDS ORDERED: Melatonin 5 MG Tablet PO SCH (21:00)
[2018-08-02 05:10] VITALS: BP 113/59; PULSE 85; RESP 16; TEMP 98.7; O2SAT 97
[2018-08-02] MEDS: Sertraline 50 MG Tablet PO SCH (08:56)
[2018-08-02] MEDS: Gabapentin 300 MG Capsule PO SCH ×2 (08:57→13:24)
--- NOTE | 2018-08-02 10:43 | P.DSPSY ---
Psychiatry Discharge Summary Inpatient Psychiatric care?: Yes Advance Directives: No Mental Health Advance Directive: No Health Care Proxy: No - Admission Admission Date: July 26, 2018 15:10 - Admission Diagnosis (1) Major depressive disorder, recurrent, moderate Code(s): F33.1 - Major depressive disorder, recurrent, moderate (2) Generalized anxiety disorder Code(s): F41.1 - Generalized anxiety disorder Brief History: The patient is a 28-year-old male with a history of cerebral palsy who presented to the emergency department under a Keller act order initiated by a psychiatric nurse at [facility]. The patient reportedly had admitted to a suicide attempt by overdose 2 days prior to admission. He had admitted to suicidal ideations for several months and taken an overdose of 8 tramadol tablets, but then told his family and agreed to seek help through [facility]. The patient reports recent and chronic stressors from grief and loss starting with his mother when he was 7 years old followed by multiple family members and close friends to include a close cousin in 2017 and a close friend just recently. Patient reports that the last time he was happy was before his mother's at the age of 7. He reports trying to be happy throughout his life, "I try to laugh and joke with my family" but he indicates that the recurrent losses continue to bring him down. Patient also expressed stress from being financially limited, "I would like to help my family more but I do not get enough money and I cannot work." As for depression, patient endorses recurrent episodes of depression with symptoms of restless sleep, decreased interest, increased feelings of guilt and helplessness, decreased energy, decreased concentration, decreased appetite, and thoughts that he would be better off . The patient also described interpersonal sensitivity while depressed characterized as "I feel like people are taking advantage of me." Patient also reports decreased frustration tolerance and difficulty controlling his temper. Patient reports that his family has been supportive and he lives for the opportunity to be around his sister brother and nephews and nieces. As for anxiety, the patient reports chronic excessive worries that are worse when "things are going good". He reports an irritable mood and intermittent muscle tension. He reports chronic problems falling asleep due to racing worries. As for psychosis, he denies any complete auditory hallucinations or visual hallucinations and he denies paranoid delusions but he does endorse negative self commentary that can be strong when feeling depressed and interpersonal anxiety and sensitivity. Past psychiatric history: Past Diagnoses: Patient reports being diagnosed with depression and anxiety by psychiatrist in 2017 Hospitalizations: None prior Suicidal behavior: Patient reports preparing for suicides a total of 3 times but this was his first actual attempt. He denies any history of interpersonal violence. Past psychotropic medication trials: Patient reports that his primary care doctor has been prescribing him Zoloft 50 mg a day and buspirone 10 mg a day for anxiety and depression but he quit because he felt like it was sedating. Outpatient MH treatment: Patient sought treatment in 2017 and had 3 visits with a psychiatrist but was ambivalent about starting medication so the treatment was discontinued. Patient eventually decided "I could not do it on my own and I need help with the depression." He sought psychiatric treatment through his primary care provider provided the BuSpar and Zoloft. Substance Use Treatment: None Abuse/assault history: Denies Family psychiatric history: Denies Psychosocial history: Patient was born and raised in [facility]. His mother when he was 7 years old. He eventually moved down to [place] at the age of 13 and graduated high school. No college. He currently lives with his sister and [id number]. He is on disability and receives Social Security income. He denies any history of arrests or legal stressors. Substance Use history: Tobacco use: He denies regular use but does admit to smoking when feeling depressed but has not used for over 2 weeks. Alcohol use: He denies a history of regular use. He does admit to drinking 2-4 times per week with friends, "I cannot afford to buy alcohol for myself." Cannabis use: He reports occasional use and again is reliant on others providing for him Stimulant use: Denies Opiate use: Denies Prescription drug abuse: Denies Tobacco Use In Past 30 Days: Yes How Often Do You Have a Drink Containing Alcohol: 2 to 3 times a week Hospital Course: Initial assessment and plan: Patient is a 28-year-old male with a history of chronic and recurrent depressive episodes as well as chronic anxiety seem to have begun with the tragic loss of his mother at the age of 7. The patient has recently had an exacerbation of his depression in relation to grief and loss. He admits to recurrent thoughts of suicide to include preparation and plans and this past week he actually follow through with an overdose of his pain medication. The patient remains depressed hopeless and helpless. He is expressing sincere motivation to get help and to live for his family and a chance to be happy again and he is willing to cooperate with medication changes and referrals for outpatient care therefore he will be allowed to sign in voluntarily with the plan to make changes to his medications ensure there tolerability and continued improvement in mood and then discharge early next week. 1. Continue with admission to inpatient psychiatry at [facility]; convert to voluntary/competent legal status. 2. Routine unit precautions. 3. Comfort medications ordered for as needed treatment of constipation, heartburn, diarrhea, and mild pain. 4. Hydroxyzine 50mg po q6H prn anxiety/insomnia. 5. Recommend an increase to his Zoloft treatment due to sedation from the 50 mg but otherwise well tolerated; start tomorrow morning at Zoloft 100 mg once a day for treatment of depression and anxiety. 6. Continue buspirone but increase to 10 mg 3 times a day for treatment of anxiety and depression. 7. Continue gabapentin as ordered. 8. Patient will participate in the unit programming to include group therapies , milieu therapy and recreational therapies. 9. Discharge planning: The patient will need referrals for psychiatric care as well as counseling. The patient is motivated to attend support group here at [facility] and will be provided information at discharge. The patient is expected to return home to his sister and [id number]. Estimated LOS: 3-5 days 07/30/2018: Fair response to treatment; the patient is reporting improved mood and sleeping well through the night and tolerating medications. He continues to express concern for his emotional sensitivity and ability to control self- harm behaviors and therefore will require continued inpatient stabilization. Continue inpatient psychiatric treatment and observation; medications unchanged. Continue involvement in the inpatient programming to include support groups and recreational therapy. Discharge planning: The patient will need referrals for psychiatric care as well as counseling. The patient is motivated to attend support group here at [facility] and will be provided information at discharge. The patient is expected to return home to his sister and [id number]. Anticipate discharge by Monday. 07/31/2018: Fair response to treatment; the patient's depression is slowly lifting and his anxiety seems better today as he is attending more of the groups that he had previously. He is tolerating the medications and expressed good understanding of safety planning and discharge planning. Continue inpatient psychiatric treatment and observation; medications unchanged as it will take more time to reach therapeutic effect from the Zoloft. Discharge planning: The patient will need referrals for psychiatric care as well as counseling. The patient is motivated to attend support group here at [facility] and will be provided information at discharge. The patient is expected to return home to his sister and [id number]. Anticipate discharge by Monday. 08/01/2018: Fair response to treatment; the patient has definitely been motivated to engage in the inpatient programming and has developed good rapport with staff and patients. He is reporting only minimal improvement in mood and continued recurrence of passive suicidal ideations and will require more time on current medication regimen in order to reach a therapeutic trial. Continue inpatient psychiatric treatment and observation; medications unchanged as it will take more time to reach therapeutic effect from the Zoloft. The dose will not be increased at this time as the patient is complaining of loose stools since started the Zoloft. Start melatonin 5 mg at bedtime for insomnia. Discharge planning: The patient will need referrals for psychiatric care as well as counseling. The patient is motivated to attend support group here at [facility] and will be provided information at discharge. The patient is expected to return home to his sister and [id number]. Anticipate discharge tomorrow. 08/02/2018: Patient was seen and examined on the unit by psychiatry and also visited by counselor. Psychotropic medications remained well tolerated and he reports improved sleep since start of melatonin 5 mg at bedtime. There was a good response to inpatient treatment plan noted by nursing and provider observations, and the patient reported improvements in mood, anxiety, and there was no evidence of any hallucinations, delusions, suicidality or homicidality at time of discharge. Psychiatric follow-up as arranged by counselor. Patient is also to follow up with primary care. I have counseled the patient to abstain from substances of abuse including cannabis and have counseled patient to return to the psychiatric emergency room for any concerning symptoms as part of a general safety plan. Discharge medications include Zoloft 100 mg take 1 tablet by mouth every day # 30 refill 0, buspirone 10 mg take 1 tablet 3 times a day #90 refill 0, hydroxyzine HCL 50 mg take 1 tablet every 8 hours as needed for anxiety #30 refill 0, melatonin 5 mg take 1 tablet at bedtime #30 refill 0. - Discharge Discharge Date: 08/02/18 - Discharge Diagnosis (1) Major depressive disorder, recurrent, moderate Code(s): F33.1 - Major depressive disorder, recurrent, moderate Status: Acute (2) Generalized anxiety disorder Code(s): F41.1 - Generalized anxiety disorder Status: Acute Discharge Disposition: Home - Discharge Time > 30 minutes Mental Status Examination Appearance: Appropriate Consciousness: Alert Orientation: x4 Motor Activity: Other (Wheelchair-bound) Speech: Unremarkable Language: Adequate Fund of Knowledge: Adequate Attention and Concentration: Adequate Memory: Unremarkable Mood: Anxious Affect: Anxious, Other (Constricted) Thought Process & Associations: Intact Thought Content: Appropriate Hallucination Type: None Delusion Type: None Suicidal Ideation: No Suicidal Plan: No Suicidal Intention: No Homicidal Ideation: No Homicidal Plan: No Homicidal Intention: No Insight: Fair Judgment: Impulsive Discharge/Advance Care Plan - Results Vital Signs: Last Vital Signs Temp 98.7 F 08/02/18 05:09 Pulse 85 08/02/18 05:09 Resp 16 08/02/18 05:09 BP 113/59 L 08/02/18 05:09 Pulse Ox 97 08/02/18 05:09 Lab Results: Laboratory Results Hemoglobin A1c 5.4 % (4.3-6.0) 07/27/18 09:32 Triglycerides 83 mg/dL (42-150) 07/27/18 09:32 Cholesterol 157 mg/dL (120-200) 07/27/18 09:32 LDL Cholesterol, Calc 78 mg/dL (0-99) 07/27/18 09:32 HDL Cholesterol 62.0 mg/dL (40.0-60.0) H 07/27/18 09:32 TSH 0.690 uIU/mL (0.358-3.740) 07/26/18 12:44 Summary of Procedures: None ordered Pending Results: None - Medications Number of antipsychotic medications at discharge: 0 - Discharge Care Plan Goals to Promote Your Health: * To prevent worsening of your condition and complications * To maintain your health at the optimal level Directions to Meet Your Goals: Take your medications as prescribed Follow your dietary instruction Follow activity as directed Keep your appointments as scheduled Take your immunizations and boosters as scheduled If your symptoms worsen call your PCP, if no PCP go to Urgent Care Center or Emergency Room For 06/02 questions related to your inpatient stay or results of tests pending at discharge, please contact Dr. Bossman Feliz MD at Smoking is Dangerous to Your Health. Avoid second hand smoking
== END 2018-08-02 16:55 | disposition home or self-care (01) | DRG 885 ==
LOC: NEPD 12:29 → NEDA 15:10 → H4EA 17:22 → H260 08-01 12:25
PROVIDERS: ADMIT Psychiatry & Neurology Psychiatry; ATTEND Psychiatry & Neurology Psychiatry
CPT/HCPCS: 80048; 80053; 80061; 80307; 83036; 83735; 84443; 85025; 90791; 99285; Q0163